=== PATIENT | female | born 1945 | race Caucasian/White ===

== ENCOUNTER 2020-04-22 09:42 | Inpatient (IN) | payer MEDICARE, MEDICAID ==
[2020-04-17 16:25] LABS: BASOPHILS # (AUTO) 0.1 X10'3 (0-0.2); EOSINOPHILS # (AUTO) 0.7 X10'3 (0-0.9); EOSINOPHILS % (AUTO) 9.4 % (0-6); LYMPHOCYTES # (AUTO) 1.4 X10'3 (1.1-4.8); LYMPHOCYTES % (AUTO) 20.1 % (21-51); MEAN CORPUSCULAR HEMOGLOBIN 29.8 PG (27.0-31.0); MEAN CORPUSCULAR HGB CONC 32.9 g/dL (33.0-36.5); MEAN CORPUSCULAR VOLUME 90.4 FL (78-98); MEAN PLATELET VOLUME 8.8 FL (7.4-10.4); MONOCYTES # (AUTO) 0.9 X10'3 (0-0.9); MONOCYTES % (AUTO) 12.1 % (2-12); NEUTROPHILS # (AUTO) 4.1 X10'3 (1.8-7.7); NEUTROPHILS % (AUTO) 57.4 % (42-75); PRE OP HEMATOCRIT 41.5 % (35.0-45.0); PRE OP HEMOGLOBIN 13.7 g/dL (12.0-16.0); PRE OP PLATELET COUNT 175 X10'3 (140-440); RED BLOOD COUNT 4.59 X10'6 (4.20-5.60); RED CELL DISTRIBUTION WIDTH 15.2 % (11.5-14.5)
[2020-04-17 16:33] LABS: PRE OP PROTIME 10.3 SECONDS (9.0-12.0)
[2020-04-17 16:36] LABS: ALBUMIN 3.9 G/DL (3.4-5.0); ALBUMIN/GLOBULIN RATIO 0.9 (1.1-1.5); ALKALINE PHOSPHATASE 121 IU/L (46-116); BLOOD UREA NITROGEN 29 MG/DL (7-18); BUN/CREATININE RATIO 11.2 (6.6-38.0); CHLORIDE 103 MMOL/L (99-107); PRE OP ALT 32 U/L (30-65); PRE OP ANION GAP 6 (8-16); PRE OP AST 35 U/L (10-37); PRE OP BILIRUB, TOTAL 0.7 MG/DL (0.0-1.0); PRE OP GLUCOSE 117 MG/DL (70-104); PRE OP SODIUM 138 MMOL/L (135-145); TOTAL CARBON DIOXIDE 29.3 MMOL/L (24-32); TOTAL PROTEIN 8.1 G/DL (6.4-8.2); eGFR 18 ML/MIN
[2020-04-17 17:01] LABS: HEMOGLOBIN A1C 6.4 % (4.5-6.2)
[~2020-04-22] VITALS: Ht 154.9 cm; Wt 70.8 kg
[2020-04-22] VITALS (20 sets, daily range): BP systolic 79–134; BP diastolic 41–71
[~2020-04-22 09:42] MED LIST: ACET325T55 PO; ASPI-1130 PO; BUPR1PAT9 TOP; CARV-50 PO; DOCUMENT DATE & TIME OF BETA-BLOCKER PO ONE; DULA0.75 SQ; FURO-150 PO; HYDR-3972 PO; ICOS1CAP PO; POLY17PO10 PO; POTA8TAB3 PO; ROSU10TA28 PO; VANCOMYCIN INJ 1000 MG in NORMAL SALINE 250ml IV.SOLN IV ONE; VITA1TAB20 PO; ceFAZolin 2gm in dextrose, iso 50 ML IV ONE; famotidine 20mg tablet PO ONE; tranexamic acid inj. 1,000 MG in normal saline 100 ML IV ONE
[2020-04-22] MEDS ORDERED: ceFAZolin 1000mg inj ONE (10:43)
[2020-04-22] MEDS ORDERED: fentaNYL/PF 50MCG/1 ML 2ML syringe ONE ×2 (10:45→12:55)
[2020-04-22] MEDS ORDERED: MIDAZolam 5mg/5ml vial ONE (10:46)
[2020-04-22] MEDS ORDERED: LIDOcaine 1%/PF 5ML 10 MG/ML VIAL ONE (13:38)
[2020-04-22] MEDS ORDERED: phenylephrine 10mg/ml inj. ONE (13:38)
[2020-04-22] MEDS ORDERED: propofol inj 20 ML IV ONE (13:38)
[2020-04-22] MEDS ORDERED: diphenhydrAMINE 50 mg/ml inj ONE (13:40)
--- NOTE | 2020-04-22 13:52 | NUR ---
PATIENT ARRIVED TO RECOVERY VIA BED WITH DR HOWARD PATIENT A&OX4, DENIES PAIN, V/S WNL, NEUROVASCULAR CHECKS INTACT, 20G PIV left forearm, DRESSING TO RIGHT HIP CDI W/ COLD POWDER PACK AND hip wrap W/ SCD ON. F/C DRAINING CLEAR YELLOW URINE. SENSATION to mid thigh and above. Richi drip running, to ween off per .
[2020-04-22] MEDS ORDERED: ringers solution, lacted 1,000 ML IV SCH (13:59)
[2020-04-22] MEDS ORDERED: ondansetron/PF 4mg/2ml inj IV PRN ×2 (14:00→14:15)
[2020-04-22] MEDS ORDERED: HYDROmorphone inj. 0.5 MG/0.5 ML DISP.SYRIN IV PRN ×3 (14:00→14:15)
[2020-04-22] MEDS ORDERED: morphine 2 MG/ML inj. syringe IV PRN (14:00)
[2020-04-22] MEDS ORDERED: BUPRENORPHINE (Butrans) 10MCG PATCH.TDWK (7-day patch) TD SCH ×2 (14:10→14:24)
[2020-04-22] MEDS ORDERED: bisacodyl 10mg suppository rectal RC PRN (14:15)
[2020-04-22] MEDS ORDERED: diphenhydrAMINE 25mg capsule PO PRN ×2 (14:15)
[2020-04-22] MEDS ORDERED: acetaminophen 325mg tablet PO PRN (14:15)
[2020-04-22] MEDS ORDERED: magnesium hydroxide 30ml (MOM) UD suspension PO PRN (14:15)
[2020-04-22] MEDS ORDERED: BUPRENORPHINE 15 MCG TP SCH (14:30)
[2020-04-22 14:35] LABS: ISTAT HGB 9.5 g/dl (12.0-16.0); ISTAT IONIZED CALCIUM 1.24 mmol/L (1.03-1.32); ISTAT K 4.5 mmol/L (3.5-5.1); POC BUN/CREATININE RATIO 16.5 (6.6-38.0)
--- NOTE | 2020-04-22 14:37 | NUR ---
Richi drip turned off and patient sustaining BPs with MAP above 60s.
--- NOTE | 2020-04-22 15:00 | NUR ---
Anesthesia updated on patient's progress, drip remains off, BPs remain stable and MAP above 60. MD states okay to transfer.
--- NOTE | 2020-04-22 15:32 | NUR ---
Report called to receiving nurse. Transferred via ortho bed. Belongings sent with patient on bed to room 4021B. Special Issues communicated to receiving nurse NEL Rios. BLL call light within reach and RN at [facility] to receive patient. First set of post op VS stable. Chart at bedside. Spoke with Dr Desai on the floor about patient to give update on blood pressure being improved. Asked if he wanted a standing order to bolus if low blood pressures reoccurred and he states no, to call him with any idsues. This was relayed to primary RN.
[2020-04-22] MEDS: HYDROcodone/acetaminophen 10/325mg tab PO PRN (15:40)
[2020-04-22] MEDS: normal saline 1000ml 1,000 ML IV SCH (15:44)
[2020-04-22] MEDS ORDERED: normal saline 1000ml 1,000 ML IV ONE (17:15)
--- NOTE | 2020-04-22 18:28 | NUR ---
Problems reprioritized. Patient report given, questions answered & plan of care reviewed with
[2020-04-22 19:20] LABS: HEMATOCRIT 26.5 % (35.0-45.0); HEMOGLOBIN 8.7 g/dl (12.0-16.0); MEAN CORPUSCULAR HEMOGLOBIN 30.3 PG (27.0-31.0); MEAN CORPUSCULAR VOLUME 91.9 FL (78-98); MEAN PLATELET VOLUME 8.3 FL (7.4-10.4); PLATELET COUNT 107 X10'3 (140-440); RED BLOOD COUNT 2.88 X10'6 (4.20-5.60); RED CELL DISTRIBUTION WIDTH 15.2 % (11.5-14.5); WHITE BLOOD COUNT 7.3 X10'3 (4.5-11.0)
[2020-04-22] MEDS: carVEDilol 12.5mg tablet PO SCH (20:00)
[2020-04-22] MEDS: ceFAZolin 1GM/D5W- ADD-VANTAGE 50 ML IV SCH (20:29)
[2020-04-22] MEDS: potassium Cl 20mEq in NS 1,000 ML IV SCH (20:30)
[2020-04-22] MEDS: HYDROcodone/acetaminophen 10/325mg tab PO SCH (20:41)
[2020-04-22] MEDS: sennosides 8.6mg tablet PO SCH (21:00)
[2020-04-23] MEDS: HYDROcodone/acetaminophen 10/325mg tab PO PRN ×5 (01:19→19:47)
[2020-04-23 02:00] VITALS: BP 94/59
[2020-04-23] MEDS: potassium Cl 20mEq in NS 1,000 ML IV SCH ×2 (03:34→11:10)
[2020-04-23] MEDS: ceFAZolin 1GM/D5W- ADD-VANTAGE 50 ML IV SCH (03:56)
[2020-04-23] MEDS: normal saline 1000ml 1,000 ML IV SCH (05:30)
--- NOTE | 2020-04-23 06:24 | NUR ---
Patient in room ORTHO 4021. I have received report from February and had the opportunity to ask questions and assume patient care.
[2020-04-23 06:49] LABS: BASOPHILS % (AUTO) 0.7 % (0-1); EOSINOPHILS # (AUTO) 0.1 X10'3 (0-0.9); EOSINOPHILS % (AUTO) 1.5 % (0-6); HEMATOCRIT 23.7 % (35.0-45.0); HEMOGLOBIN 7.9 g/dl (12.0-16.0); LYMPHOCYTES # (AUTO) 0.6 X10'3 (1.1-4.8); LYMPHOCYTES % (AUTO) 8.8 % (21-51); MEAN CORPUSCULAR HGB CONC 33.3 g/dL (33.0-36.5); MEAN CORPUSCULAR VOLUME 90.3 FL (78-98); MEAN PLATELET VOLUME 8.7 FL (7.4-10.4); MONOCYTES # (AUTO) 0.8 X10'3 (0-0.9); MONOCYTES % (AUTO) 12.9 % (2-12); NEUTROPHILS # (AUTO) 4.9 X10'3 (1.8-7.7); NEUTROPHILS % (AUTO) 76.1 % (42-75); PLATELET COUNT 110 X10'3 (140-440); RED BLOOD COUNT 2.63 X10'6 (4.20-5.60); RED CELL DISTRIBUTION WIDTH 15.2 % (11.5-14.5); WHITE BLOOD COUNT 6.4 X10'3 (4.5-11.0)
--- NOTE | 2020-04-23 07:07 | NUR ---
Patient in room ORTHO 4021. I have received report from LESLEE NEUMANN and had the opportunity to ask questions and assume patient care.
[2020-04-23 07:10] LABS: ANION GAP 7 (8-16); BILIRUBIN,TOTAL 0.3 MG/DL (0.1-1.0); BLOOD UREA NITROGEN 33 MG/DL (7-18); BUN/CREATININE RATIO 15.4 (6.6-38.0); CALCIUM 8.2 MG/DL (8.5-10.1); CHLORIDE 110 MMOL/L (99-107); CREATININE 2.14 MG/DL (0.40-0.90); GLUCOSE 158 MG/DL (70-104); POTASSIUM 4.8 MMOL/L (3.5-5.1); SODIUM 140 MMOL/L (135-145); TOTAL CARBON DIOXIDE 22.7 MMOL/L (24-32); eGFR 22 ML/MIN
[2020-04-23 07:11] LABS: ALANINE AMINOTRANSFERASE 18 U/L (12-78); ALBUMIN 2.4 G/DL (3.4-5.0); ALBUMIN/GLOBULIN RATIO 0.9 (1.1-1.5); ALKALINE PHOSPHATASE 61 IU/L (46-116); ASPARTATE AMINO TRANSFERASE 26 U/L (10-37)
--- NOTE | 2020-04-23 07:26 | NUR ---
NonAdmin Patient home med Vasce[place] patient has brought in medication.
[2020-04-23] MEDS: polyethylene glycol 3350 17gm powd pack PO SCH (07:41)
[2020-04-23] MEDS: potassium chloride 8mEq ER tablet PO SCH (07:43)
[2020-04-23] MEDS: furosemide 20MG tablet PO SCH (07:44)
[2020-04-23] MEDS: HYDROcodone/acetaminophen 10/325mg tab PO SCH ×2 (08:00→13:00)
[2020-04-23] MEDS: carVEDilol 12.5mg tablet PO SCH ×2 (08:00→20:00)
[2020-04-23] MEDS: enoxaparin 30mg/0.3ml syringe SQ SCH (08:01)
--- NOTE | 2020-04-23 08:08 | NUR ---
NON-ADMIN NORCO BECAUSE PRN WAS GIVEN WITHIN THE TIME FRAME.
[2020-04-23 09:45] VITALS: BP 118/53
--- NOTE | 2020-04-23 10:44 | NUR ---
Joint Replacement/DM Consults: Pt PO pending s/p R hip surgery hx DM A1C less than 7 and not appropriate for ed at this time. Pt seen by RD for written/verbal high protein ed w/ RD contact information provided. Pt is agreeable to vanilla ensure high protein BIDBD and chocolate ensure pudding at lunch today; MD and dietary notified. Pt reports vegetarian and does not drink milk as well; dietary notified of preferences. Addendum: 04/23/20 at [address] Amended: Links added.
[2020-04-23 10:48] VITALS: BP 118/53
--- NOTE | 2020-04-23 17:18 | NUR ---
Student documentation: I have reviewed and agree with all interventions, assessments performed and documented by SN Jennifer and SN Teresita. NEL López.
[2020-04-23 18:00] VITALS: BP 93/48
--- NOTE | 2020-04-23 18:10 | NUR ---
Patient in room ORTHO 4015. I have received report from NEL Rios and had the opportunity to ask questions and assume patient care.
[2020-04-23] MEDS: sennosides 8.6mg tablet PO SCH (20:09)
[2020-04-23 22:00] VITALS: BP 101/53
[2020-04-24] VITALS (18 sets, daily range): BP systolic 65–117; BP diastolic 31–66
[2020-04-24] MEDS: HYDROcodone/acetaminophen 10/325mg tab PO PRN ×3 (04:59→19:14)
[2020-04-24 06:09] LABS: BASOPHILS % (AUTO) 0.5 % (0-1); EOSINOPHILS # (AUTO) 0.2 X10'3 (0-0.9); EOSINOPHILS % (AUTO) 2.1 % (0-6); HEMATOCRIT 24.1 % (35.0-45.0); HEMOGLOBIN 8.2 g/dl (12.0-16.0); LYMPHOCYTES # (AUTO) 0.9 X10'3 (1.1-4.8); LYMPHOCYTES % (AUTO) 11.8 % (21-51); MEAN CORPUSCULAR HEMOGLOBIN 30.7 PG (27.0-31.0); MEAN CORPUSCULAR HGB CONC 33.9 g/dL (33.0-36.5); MEAN CORPUSCULAR VOLUME 90.6 FL (78-98); MEAN PLATELET VOLUME 8.6 FL (7.4-10.4); MONOCYTES # (AUTO) 0.9 X10'3 (0-0.9); MONOCYTES % (AUTO) 11.9 % (2-12); NEUTROPHILS # (AUTO) 5.4 X10'3 (1.8-7.7); NEUTROPHILS % (AUTO) 73.7 % (42-75); PLATELET COUNT 109 X10'3 (140-440); RED BLOOD COUNT 2.66 X10'6 (4.20-5.60); RED CELL DISTRIBUTION WIDTH 15.6 % (11.5-14.5); WHITE BLOOD COUNT 7.3 X10'3 (4.5-11.0)
--- NOTE | 2020-04-24 06:19 | NUR ---
Problems reprioritized. Patient report given, questions answered & plan of care reviewed with NEL Barrera.
[2020-04-24 06:23] LABS: ALANINE AMINOTRANSFERASE 22 U/L (12-78); ALBUMIN 2.3 G/DL (3.4-5.0); ALBUMIN/GLOBULIN RATIO 0.7 (1.1-1.5); ALKALINE PHOSPHATASE 111 IU/L (46-116); ANION GAP 8 (8-16); ASPARTATE AMINO TRANSFERASE 53 U/L (10-37); BILIRUBIN,TOTAL 0.8 MG/DL (0.1-1.0); BLOOD UREA NITROGEN 32 MG/DL (7-18); BUN/CREATININE RATIO 15.6 (6.6-38.0); CALCIUM 8.7 MG/DL (8.5-10.1); CHLORIDE 109 MMOL/L (99-107); CREATININE 2.05 MG/DL (0.40-0.90); GLUCOSE 151 MG/DL (70-104); POTASSIUM 4.4 MMOL/L (3.5-5.1); SODIUM 140 MMOL/L (135-145); TOTAL CARBON DIOXIDE 23.1 MMOL/L (24-32); TOTAL PROTEIN 5.5 G/DL (6.4-8.2); eGFR 24 ML/MIN
--- NOTE | 2020-04-24 06:29 | NUR ---
Patient in room ORTHO 4021. I have received report from Anita NEUMANN and had the opportunity to ask questions and assume patient care.
[2020-04-24] MEDS: polyethylene glycol 3350 17gm powd pack PO SCH (08:00)
[2020-04-24] MEDS: carVEDilol 12.5mg tablet PO SCH ×2 (08:00→19:21)
[2020-04-24] MEDS: furosemide 20MG tablet PO SCH (08:00)
--- NOTE | 2020-04-24 08:51 | NUR ---
WENT INTO HELP PATIENT TO GET OFF THE COMMODE. PT STATED SHE IS SWEATY AND FEELS LIGHT HEADED, VS TAKEN AT THAT TIME 67/33 HR 103, 96O2. THEN RETAKEN WITH A TIGHTER CUFF SAME RESULT 65/31BP 98RA 69HR ASKED PHYSICAL THERAPY TO HELP GET PATIENT BACK TO BED, PATIENT PUT IN R [facility] VS 117/57 94HR. INITIATED 250ns BOLUS, CALLED DR. ROMAN REGARDING PATIENT ORDERS RECEIVED TO TRANSFUSE 1UNIT BLOOD, AND IF PATIENT TOLERATES THE FIRST UNIT GIVE THE SECOND. Addendum: 04/24/20 at 0914 by Krystal Dong RN Amended: Links added.
--- NOTE | 2020-04-24 09:00 | NUR ---
During physical assessment it was noted pt had irregular heartbeat. Patient denies any history of a fib or any other irregularity. Notified charger operator helperNEL Rice. Call to Dr Desai requesting telemetry and EKG.
--- NOTE | 2020-04-24 09:14 | NUR ---
CALLED DR. ROMAN FOR A EKG AND TELE DUE TO IRREGULAR HR
[2020-04-24] MEDS: enoxaparin 30mg/0.3ml syringe SQ SCH ×2 (09:21→19:15)
--- NOTE | 2020-04-24 09:40 | NUR ---
EKG done, shows A fib, showed to plant facilities technician & compared to quality assurance monitor final. Call out to Dr Desai.
--- NOTE | 2020-04-24 09:58 | NUR ---
Dr Desai aware of EKG results, he has spoken with Dr Patricio who will be consulting on patient.
--- NOTE | 2020-04-24 11:37 | NUR ---
Received report from NEL Barrera from ortho/neuro. Awaiting patient arrival to room 3009.
--- NOTE | 2020-04-24 11:55 | NUR ---
Patient arrived to room 3009 via hospital bed. Patient vital signs temp. 98.9F, HR 108, RR 18, 95% on room air, BP 98/66, pain 0/10. Bed locked and lowered, nonskid socks on, call light in reach, frequent rounding, and in no acute distress.
[2020-04-24] MEDS ORDERED: amiodarone 150mg/dext, iso-os 100 ML IV ONE (12:25)
--- NOTE | 2020-04-24 12:25 | NUR ---
Orders put in to start amiodarone drip put in per protocol per Dr. Patricio.
[2020-04-24] MEDS: amiodarone/D5 360MG/200ML BAG 200 ML IV SCH ×2 (13:26→20:19)
[2020-04-24] MEDS: potassium Cl 20mEq in NS 1,000 ML IV SCH (15:15)
[2020-04-24] MEDS: lactose-reduced food (Ensure High Protein) 237ml bottle PO SCH ×3 (17:30→18:55)
--- NOTE | 2020-04-24 18:32 | NUR ---
Problems reprioritized. Patient report given, questions answered & plan of care reviewed with NEL Cummings. Patient stable at transfer of care.
[2020-04-24] MEDS: potassium chloride 8mEq ER tablet PO SCH (18:55)
[2020-04-24] MEDS: sennosides 8.6mg tablet PO SCH (20:18)
--- NOTE | 2020-04-24 21:30 | NUR ---
Patient noted to have converted back into NSR with 1st degree block at 2049. Amiodarone gtt infusing at 0.5mg. November CONCRETE MIXER OPERATOR HELPER notified. Ordered to continue gtt. Will continue to monitor.
[2020-04-25] VITALS (9 sets, daily range): BP systolic 97–113; BP diastolic 40–53
[2020-04-25] MEDS: HYDROcodone/acetaminophen 10/325mg tab PO PRN ×5 (00:21→20:37)
[2020-04-25] MEDS: amiodarone/D5 360MG/200ML BAG 200 ML IV SCH ×2 (00:33→07:13)
[2020-04-25] MEDS: normal saline 1000ml 1,000 ML IV SCH (05:04)
[2020-04-25 06:07] LABS: BASOPHILS # (AUTO) 0.1 X10'3 (0-0.2); BASOPHILS % (AUTO) 1.1 % (0-1); EOSINOPHILS # (AUTO) 0.2 X10'3 (0-0.9); EOSINOPHILS % (AUTO) 3.1 % (0-6); HEMATOCRIT 25.4 % (35.0-45.0); HEMOGLOBIN 8.6 g/dl (12.0-16.0); LYMPHOCYTES # (AUTO) 1.4 X10'3 (1.1-4.8); LYMPHOCYTES % (AUTO) 18.6 % (21-51); MEAN CORPUSCULAR HEMOGLOBIN 30.6 PG (27.0-31.0); MEAN CORPUSCULAR VOLUME 90.1 FL (78-98); MEAN PLATELET VOLUME 8.8 FL (7.4-10.4); MONOCYTES # (AUTO) 0.7 X10'3 (0-0.9); MONOCYTES % (AUTO) 8.7 % (2-12); NEUTROPHILS # (AUTO) 5.3 X10'3 (1.8-7.7); NEUTROPHILS % (AUTO) 68.5 % (42-75); PLATELET COUNT 117 X10'3 (140-440); RED BLOOD COUNT 2.82 X10'6 (4.20-5.60); RED CELL DISTRIBUTION WIDTH 15.9 % (11.5-14.5); WHITE BLOOD COUNT 7.8 X10'3 (4.5-11.0)
[2020-04-25 06:24] LABS: ALANINE AMINOTRANSFERASE 37 U/L (12-78); ALBUMIN/GLOBULIN RATIO 0.6 (1.1-1.5); ALKALINE PHOSPHATASE 146 IU/L (46-116); ANION GAP 8 (8-16); ASPARTATE AMINO TRANSFERASE 62 U/L (10-37); BILIRUBIN,TOTAL 0.4 MG/DL (0.1-1.0); BLOOD UREA NITROGEN 30 MG/DL (7-18); BUN/CREATININE RATIO 15.5 (6.6-38.0); CHLORIDE 109 MMOL/L (99-107); CREATININE 1.94 MG/DL (0.40-0.90); GLUCOSE 135 MG/DL (70-104); SODIUM 141 MMOL/L (135-145); TOTAL CARBON DIOXIDE 23.8 MMOL/L (24-32); TOTAL PROTEIN 5.3 G/DL (6.4-8.2); eGFR 25 ML/MIN
--- NOTE | 2020-04-25 06:45 | NUR ---
Patient in room PCU 3009. I have received report from NEL Cummings and had the opportunity to ask questions and assume patient care. Patient asleep in bed and in no acute distress.
[2020-04-25] MEDS: potassium chloride 8mEq ER tablet PO SCH (07:10)
[2020-04-25] MEDS: carVEDilol 12.5mg tablet PO SCH ×2 (07:10→20:00)
[2020-04-25] MEDS: furosemide 20MG tablet PO SCH (07:10)
[2020-04-25] MEDS: enoxaparin 30mg/0.3ml syringe SQ SCH ×2 (07:16→20:33)
[2020-04-25] MEDS: polyethylene glycol 3350 17gm powd pack PO SCH (07:17)
[2020-04-25] MEDS: lactose-reduced food (Ensure High Protein) 237ml bottle PO SCH ×2 (07:19→17:30)
--- NOTE | 2020-04-25 17:44 | NUR ---
[place] documentation: I have reviewed and agree with all interventions, assessments performed and documented by NEL Ramirez.
--- NOTE | 2020-04-25 17:45 | NUR ---
[place] Medication Administration: For this medication-pass time frame, all medication were reviewed, dispensed, administered and documented per hospital policy by NEL Ramirez.
--- NOTE | 2020-04-25 18:30 | NUR ---
Patient in room PCU 3009. I have received report from Mary NEUMANN and had the opportunity to ask questions and assume patient care.
--- NOTE | 2020-04-25 18:33 | NUR ---
Problems reprioritized. Patient report given, questions answered & plan of care reviewed with Jorge RN. Patient stable at transfer of care.
[2020-04-25] MEDS: amiodarone 200mg tablet PO SCH (20:34)
[2020-04-25] MEDS: sennosides 8.6mg tablet PO SCH (20:38)
[2020-04-26] MEDS: HYDROcodone/acetaminophen 10/325mg tab PO PRN ×3 (01:18→11:59)
[2020-04-26 02:00] VITALS: BP 109/49
--- NOTE | 2020-04-26 06:28 | NUR ---
Problems reprioritized. Patient report given, questions answered & plan of care reviewed with Mary NEUMANN.
[2020-04-26 07:00] VITALS: BP 95/42
[2020-04-26] MEDS: lactose-reduced food (Ensure High Protein) 237ml bottle PO SCH (07:30)
[2020-04-26] MEDS: carVEDilol 12.5mg tablet PO SCH (07:39)
[2020-04-26] MEDS: potassium chloride 8mEq ER tablet PO SCH (07:39)
[2020-04-26] MEDS: amiodarone 200mg tablet PO SCH (07:39)
[2020-04-26] MEDS: furosemide 20MG tablet PO SCH (07:40)
[2020-04-26] MEDS: polyethylene glycol 3350 17gm powd pack PO SCH (07:42)
[2020-04-26] MEDS: enoxaparin 30mg/0.3ml syringe SQ SCH (07:42)
--- NOTE | 2020-04-26 13:36 | NUR ---
Called to give report to . Spoke to NEL Grissom for report. Awaiting care van to transfer patient to [place].
--- NOTE | 2020-04-26 14:20 | NUR ---
[place] documentation: I have reviewed and agree with all interventions, assessments performed and documented by NEL Ramirez.
--- NOTE | 2020-04-26 14:20 | NUR ---
[place] Medication Administration: For this medication-pass time frame, all medication were reviewed, dispensed, administered and documented per hospital policy by NEL Ramirez.
--- NOTE | 2020-04-26 14:20 | NUR ---
Stable for transfer per MD orders. All transfer instructions reviewed with patient and all questions answered. Called report to and spoke to NEL Grissom. PIV Discontinued and cannula intact. . Bedside mobile disconnected. Belongings collected and sent with patient. Transfer packet given to [facility] employees. Patient transferred to [facility] with aide of [facility] employees, wheeled to [facility]. Cut patient armbands at time of discharge.
== END 2020-04-26 14:47 | DRG 470 ==
LOC: PAS 09:42 → ORTHO 4S 14:14 → PCU 3S 04-24 11:57
PROVIDERS: ADMIT Orthopaedic Surgery; ATTEND Orthopaedic Surgery
PROC: 0SR9069 Replacement of Right Hip Joint with Oxidized Zirconium on Polyethylene Synthetic Substitute, Cemented, Open Approach (ICD-10-PCS; principal; 2020-04-22 11:12)
PROC: 30233N1 Transfusion of Nonautologous Red Blood Cells into Peripheral Vein, Percutaneous Approach (ICD-10-PCS; 2020-04-24)
DX: M16.11 Unilateral primary osteoarthritis, right hip (principal); N17.9 Acute kidney failure, unspecified; I13.0 Hypertensive heart and chronic kidney disease with heart failure and stage 1 through stage 4 chronic kidney disease, or unspecified chronic kidney disease; I48.91 Unspecified atrial fibrillation; E86.1 Hypovolemia; E11.22 Type 2 diabetes mellitus with diabetic chronic kidney disease; N18.9 Chronic kidney disease, unspecified; I50.9 Heart failure, unspecified; G89.29 Other chronic pain; M54.9 Dorsalgia, unspecified; I25.10 Atherosclerotic heart disease of native coronary artery without angina pectoris; I25.2 Old myocardial infarction; Z79.82 Long term (current) use of aspirin; Z87.442 Personal history of urinary calculi; Z87.891 Personal history of nicotine dependence; Z79.899 Other long term (current) drug therapy
CPT/HCPCS: 36415; 36430; 76937; 80047; 80053; 82948; 83036; 85025; 85027; 85610; 85730; 86885; 86900; 86901; 86920; 87081; 93005; 97110; 97116; 97162; 97530; A4618; A6258; A6402; A7000; C1713; C1758; C1776; G0378; J0690; J1170; J1200; J1650; J2250; J2370; J2704; J3010; J3370; J3480; J7030; J7120; P9016

== ENCOUNTER 2021-08-11 00:01 | Emergency (ER) | payer BC, MEDICAID ==
[~2021-08-11] VITALS: Ht 154.9 cm; Wt 77.3 kg
[~2021-08-11 00:01] MED LIST changes: -ACET325T55 PO; -ASPI-1130 PO; -DOCUMENT DATE & TIME OF BETA-BLOCKER PO ONE; -DULA0.75 SQ; -ROSU10TA28 PO; -VANCOMYCIN INJ 1000 MG in NORMAL SALINE 250ml IV.SOLN IV ONE; -VITA1TAB20 PO; -ceFAZolin 2gm in dextrose, iso 50 ML IV ONE; -famotidine 20mg tablet PO ONE; -tranexamic acid inj. 1,000 MG in normal saline 100 ML IV ONE
[2021-08-11 03:37] LABS: BASOPHILS # (AUTO) 0.1 X10'3 (0-0.2); BASOPHILS % (AUTO) 1.3 % (0-1); EOSINOPHILS # (AUTO) 0.6 X10'3 (0-0.9); EOSINOPHILS % (AUTO) 6.5 % (0-6); HEMATOCRIT 43.6 % (35.0-45.0); HEMOGLOBIN 14.4 g/dl (12.0-16.0); LYMPHOCYTES # (AUTO) 1.8 X10'3 (1.1-4.8); LYMPHOCYTES % (AUTO) 20.4 % (21-51); MEAN CORPUSCULAR HEMOGLOBIN 29.6 PG (27.0-31.0); MEAN CORPUSCULAR VOLUME 89.5 FL (78-98); MEAN PLATELET VOLUME 9.3 FL (7.4-10.4); MONOCYTES # (AUTO) 0.8 X10'3 (0-0.9); MONOCYTES % (AUTO) 9.1 % (2-12); NEUTROPHILS # (AUTO) 5.4 X10'3 (1.8-7.7); NEUTROPHILS % (AUTO) 62.7 % (42-75); PLATELET COUNT 149 X10'3 (140-440); RED BLOOD COUNT 4.88 X10'6 (4.20-5.60); WHITE BLOOD COUNT 8.6 X10'3 (4.5-11.0)
[2021-08-11 03:49] LABS: CLARITY,URINE CLOUDY (Clear); COLOR,URINE YELLOW (Yellow); GLUCOSE, URINE NEGATIVE (Neg); KETONES,URINE NEGATIVE (Neg); OCCULT BLOOD,URINE TRACE-LYSED (Neg); PROTEIN,URINE TRACE mg/dl (Neg); UA COLLECTION TYPE CLN CATCH MIDSTREAM
[2021-08-11 03:50] LABS: LEUKOCYTE ESTERASE ,URINE SMALL (Neg); NITRITES, URINE NEGATIVE (Neg); UROBILINOGEN,URINE 0.2 E.U/dL (0.2-1.0)
[2021-08-11 03:58] LABS: SQUAMOUS EPITHELIAL CELL,UR MODERATE /LPF (FEW); WBC CLUMPS,URINE MANY /HPF (NEGATIVE)
[2021-08-11 03:59] LABS: WBC,URINE TNTC /HPF (0-4)
[2021-08-11 04:00] LABS: BACTERIA,URINE 4+ /HPF (Neg)
[2021-08-11 04:09] LABS: ALANINE AMINOTRANSFERASE 38 U/L (12-78); ALBUMIN 3.8 G/DL (3.4-5.0); ALBUMIN/GLOBULIN RATIO 0.9 (1.1-1.5); ALKALINE PHOSPHATASE 133 IU/L (46-116); ANION GAP 11 (8-16); ASPARTATE AMINO TRANSFERASE 72 U/L (10-37); BILIRUBIN,TOTAL 0.5 MG/DL (0.1-1.0); BLOOD UREA NITROGEN 33 MG/DL (7-18); CALCIUM 9.9 MG/DL (8.5-10.1); CHLORIDE 103 MMOL/L (99-107); GLUCOSE 190 MG/DL (70-104); POTASSIUM 5.1 MMOL/L (3.5-5.1); SODIUM 141 MMOL/L (135-145); TOTAL CARBON DIOXIDE 27.3 MMOL/L (24-32)
[2021-08-11] MEDS ORDERED: cephalexin 500mg capsule PO ONE (04:25)
[2021-08-11 04:45] LABS: BUN/CREATININE RATIO 12.6 (6.6-38.0); CREATININE 2.62 MG/DL (0.40-0.90); eGFR 18 ML/MIN
[2021-08-11] MEDS ORDERED: CEPH-585 PO (04:56)
[2021-08-11 05:05] VITALS: BP 140/52
== END 2021-08-11 05:08 | disposition home or self-care (01) ==
LOC: ER 00:02
DX: N12 Tubulo-interstitial nephritis, not specified as acute or chronic (principal); I13.0 Hypertensive heart and chronic kidney disease with heart failure and stage 1 through stage 4 chronic kidney disease, or unspecified chronic kidney disease; E11.22 Type 2 diabetes mellitus with diabetic chronic kidney disease; N18.9 Chronic kidney disease, unspecified; M54.89 Other dorsalgia; I25.10 Atherosclerotic heart disease of native coronary artery without angina pectoris; I25.2 Old myocardial infarction; M19.90 Unspecified osteoarthritis, unspecified site; G89.29 Other chronic pain; Z86.2 Personal history of diseases of the blood and blood-forming organs and certain disorders involving the immune mechanism; Z87.440 Personal history of urinary (tract) infections; Z87.442 Personal history of urinary calculi; Z98.890 Other specified postprocedural states; Z79.899 Other long term (current) drug therapy
CPT/HCPCS: 36415; 72100; 80053; 81001; 84484; 85025; 87077; 87088; 87186; 93005; 99285

== ENCOUNTER 2022-11-30 20:36 | Emergency (ER) | payer BC, MEDICAID ==
[~2022-11-30] VITALS: Ht 154.9 cm; Wt 74.1 kg
[~2022-11-30 20:36] MED LIST changes: -POTA8TAB3 PO; +POTA8TAB69 PO
[2022-11-30 20:52] LABS: BASOPHILS % (AUTO) 0.7 % (0-1); EOSINOPHILS # (AUTO) 0.5 X10'3 (0-0.9); EOSINOPHILS % (AUTO) 8.7 % (0-6); HEMATOCRIT 39.8 % (35.0-45.0); HEMOGLOBIN 13.4 g/dl (12.0-16.0); LYMPHOCYTES # (AUTO) 1.4 X10'3 (1.1-4.8); LYMPHOCYTES % (AUTO) 23.4 % (21-51); MEAN CORPUSCULAR HEMOGLOBIN 30.3 PG (27.0-31.0); MEAN CORPUSCULAR HGB CONC 33.6 g/dL (33.0-36.5); MEAN CORPUSCULAR VOLUME 90.2 FL (78-98); MEAN PLATELET VOLUME 8.2 FL (7.4-10.4); MONOCYTES # (AUTO) 0.5 X10'3 (0-0.9); MONOCYTES % (AUTO) 9.1 % (2-12); NEUTROPHILS # (AUTO) 3.4 X10'3 (1.8-7.7); NEUTROPHILS % (AUTO) 58.1 % (42-75); PLATELET COUNT 107 X10'3 (140-440); RED BLOOD COUNT 4.42 X10'6 (4.20-5.60); RED CELL DISTRIBUTION WIDTH 14.4 % (11.5-14.5); WHITE BLOOD COUNT 5.8 X10'3 (4.5-11.0)
[2022-11-30 21:17] LABS: ALANINE AMINOTRANSFERASE 10 U/L (12-78); ALBUMIN 3.5 G/DL (3.4-5.0); ALKALINE PHOSPHATASE 121 IU/L (46-116); ANION GAP 7 (8-16); ASPARTATE AMINO TRANSFERASE 49 U/L (10-37); BILIRUBIN,TOTAL 0.6 MG/DL (0.1-1.0); BLOOD UREA NITROGEN 23 MG/DL (7-18); BUN/CREATININE RATIO 10.6 (6.6-38.0); CALCIUM 9.5 MG/DL (8.5-10.1); CHLORIDE 103 MMOL/L (99-107); CREATININE 2.18 MG/DL (0.40-0.90); GLUCOSE 196 MG/DL (70-104); MAGNESIUM 2.3 MG/DL (1.5-2.4); POTASSIUM 4.7 MMOL/L (3.5-5.1); SODIUM 136 MMOL/L (135-145); TOTAL CARBON DIOXIDE 26.2 MMOL/L (24-32); eGFR 22 ML/MIN
[2022-11-30] MEDS ORDERED: ondansetron 4mg rapidly disintigrating tab PO ONE (23:35)
[2022-12-01] MEDS ORDERED: ONDA4TAB12 PO (00:33)
[2022-12-01 00:51] VITALS: BP 112/79
== END 2022-12-01 00:53 | disposition home or self-care (01) ==
LOC: ER 20:38
DX: R42 Dizziness and giddiness (principal); R11.0 Nausea; R51.9 Headache, unspecified; I25.10 Atherosclerotic heart disease of native coronary artery without angina pectoris; I11.0 Hypertensive heart disease with heart failure; I50.9 Heart failure, unspecified; I25.2 Old myocardial infarction; E11.9 Type 2 diabetes mellitus without complications; M19.90 Unspecified osteoarthritis, unspecified site; G89.29 Other chronic pain; Z87.442 Personal history of urinary calculi; Z95.5 Presence of coronary angioplasty implant and graft; Z98.890 Other specified postprocedural states; Z79.899 Other long term (current) drug therapy
CPT/HCPCS: 36415; 71045; 80053; 83735; 83880; 84484; 85025; 93005; 99285